=== PATIENT | female | born 1975 | race American Indian/Alaskan Native ===

== ENCOUNTER 2017-07-31 16:00 | Outpatient (CLI) | payer OTHER | END 2017-07-31 16:01 | disposition home or self-care (01) | LOC: LABHHL 16:00 | PROVIDERS: ATTEND Surgery | DX: N60.01 Solitary cyst of right breast (principal) | CPT/HCPCS: 88112 ==

== ENCOUNTER 2021-01-08 10:21 | Outpatient (CLI) | payer MEDICAID ==
--- NOTE | 2021-01-08 14:08 | Mammography Report ---
BILATERAL DIGITAL SCREENING MAMMOGRAM WITH CAD WITH TOMOSYNTHESIS HISTORY: Screening mammogram. TECHNIQUE: Routine digital mammographic imaging performed. This examination was interpreted with th e benefit of Computer-aided Detection analysis. Tomosynthesis images were acquired and reviewed. COMPARISON: 11/07/2019, 08/30/2018, 07/31/2017. FINDINGS: Breast Density: heterogeneously dense breast parenchymal pattern which somewhat lessens the sensitivi ty of the evaluation. Digital CC and MLO views demonstrate partially obscured oval low-density masses within left upper inn er and outer breast at middle depth. No suspicious findings within the right breast. IMPRESSION: Partially obscured oval low-density masses within the left upper inner and outer breast at middle dep th. These may represent cysts. A targeted ultrasound is recommended for further evaluation. For local ization purposes, the left breast should be scanned focused around the 9:00 to 10:00 position and 2:0 0 to 3:00 position, both 6 cm from the nipple. Additional mammographic views may be indicated after t he ultrasound. BIRADS 0-Incomplete: Needs additional imaging evaluation NOTE: WE WILL RECALL THE PATIENT FOR THIS ADDITIONAL EVALUATION. FURTHER INFORMATION: According to the [employer], yearly mammograms are recommend ed starting at age 40 and continuing as long as a woman is in good health. Clinical Breast Exams shou ld be part of a periodic health exam-about every 3 years for women in their 20s and 30s and every yea r for women 40 and over. Breast self exam is an option for women starting in their 20s. Any breast ch tristan noted on a breast self exam should be reported promptly to the patient's healthcare provider. Br east MRI is recommended for women with an approximately 20-25% or greater lifetime risk of breast can cer, including women with a strong family history of breast or ovarian cancer and women who have been treated for Hodgkin's disease. A negative Mammography report should not discourage follow up or biopsy of a clinically significant f inding and/or abnormality. Dense breast tissue may obscure small neoplasms. The patient will be entered into a reminder system with a target due date for the next screening mamm ogram. Signer Name: Kyle Guzman MD Signed: 01/08/2021 2:04 PM Workstation Name: [id number]
== END 2021-01-08 10:22 | disposition home or self-care (01) ==
LOC: SPVWC 10:21
PROVIDERS: ATTEND Surgery
DX: Z12.31 Encounter for screening mammogram for malignant neoplasm of breast (principal)
CPT/HCPCS: 77063; 77067

== ENCOUNTER 2021-02-26 08:35 | Outpatient (CLI) | payer MEDICAID ==
--- NOTE | 2021-02-26 16:19 | Ultrasound Report ---
ULTRASOUND-GUIDED LEFT BREAST CYST ASPIRATION X2 INDICATION: Mass lesion is suspected to be cysts seen on recent mammogram and noted as cysts on outsi de ultrasound; both areas are painful COMPARISON: Bilateral mammogram 01/08/2021; no outside ultrasound is available for review CONSENT: Procedure was discussed at length with the patient including possible risks and benefits. PROCEDURE: Timeout was performed. Ultrasound shows in the 10:00 position, 4 cm from the nipple, a surendra ign simple cyst measuring 17 mm. In the 2:00 position, 4 cm from the nipple, a minimally concave is c yst with a slight partial septation is seen flattening vascularity or other suspicious feature. These correspond to the mammographic abnormalities. At the site after standard prep demonstrating, local anesthesia with 1% lidocaine was used. Separate aspirations were performed at each site using 22-gauge spinal needles under direct ultrasound guidanc e. Both cysts were completely collapsed at the end of the procedure. The clear yellowish fluid obtain ed was examined and then discarded, considered typical of benign cysts. IMPRESSION: Successful ultrasound-guided cyst aspirations x2 Signer Name: Blue Garcia MD Signed: 02/26/2021 4:15 PM Workstation Name: [id number]
== END 2021-02-26 08:36 | disposition home or self-care (01) ==
LOC: SPVWC 08:35
PROVIDERS: ATTEND Surgery
DX: R92.8 Other abnormal and inconclusive findings on diagnostic imaging of breast (principal); Z79.899 Other long term (current) drug therapy; Z88.2 Allergy status to sulfonamides; Z88.8 Allergy status to other drugs, medicaments and biological substances